=== PATIENT | female | born 1940 | race Caucasian/White ===

== ENCOUNTER 2020-03-01 18:23 | Inpatient (IN) | payer OTHER, SELFPAY ==
[~2020-03-01] VITALS: Ht 160 cm; Wt 63.5 kg
--- NOTE | 2020-03-01 19:09 | NUR ---
RECEIVED PT IN BED 7 VIA [facility] WITH C/O ALOC. PT IS FROM [facility]. PT WAS FOUND OUTSIDE EARLIER TODAY, ALTERED, 911 WAS CALLED, PT TAKEN TO [facility] WHERE SHE WAS FOUND TO BE COVID (+). PT SIGNED OUT AMA. RETURNED HOME WAS ONCE AGAIN FOUND ALTERED IN FRONT OF HOME, 911 WAS CALLED AGAIN. PT IS NOW AWAKE AND CONFUSED, MINIMALLY FOLLOWS COMMANDS. IS DISHEVELED. DENIES MEDICAL HISTORY. BG RETAIL ASSISTANT STORE MANAGER WAS 51. D10 WAS GIVEN BY MEDICS.. 22G SL INTACT TO LEFT HAND.
[2020-03-01] MEDS: DEXTROSE 10% 250 ML IV SCH (19:10)
[2020-03-01 19:32] VITALS: BP 127/58
[2020-03-01 19:47] LABS: BASOPHILS % (AUTO) 0.3 % (0.0-2.0); HEMATOCRIT 37.1 % (36-48); HEMOGLOBIN 11.5 g/dL (12.0-16.0); LYMPHOCYTES # (AUTO) 0.8 K/uL (2.5-16.5); LYMPHOCYTES % (AUTO) 8.2 % (20.5-51.1); MEAN CORPUSCULAR HEMOGLOBIN 27 pg (27-31); MEAN CORPUSCULAR HGB CONC 31 g/dL (33-37); MEAN CORPUSCULAR VOLUME 85.3 fL (80-94); MONOCYTES # (AUTO) 0.4 K/uL (0.8-1.0); MONOCYTES % (AUTO) 4.2 % (1.7-9.3); NEUTROPHILS # (AUTO) 8.5 K/uL (1.8-7.7); NEUTROPHILS % (AUTO) 87.3 % (42.2-75.2); PLATELET COUNT (AUTO) 273 K/uL (140-450); RED BLOOD CELL COUNT(AUTO) 4.35 MIL/uL (4.20-5.40); WHITE BLOOD COUNT (AUTO) 9.8 K/uL (4.8-10.8)
--- NOTE | 2020-03-01 19:48 | NUR ---
ABG DRAWN, PCXR DONE
[2020-03-01 19:58] LABS: C-REACTIVE PROTEIN QUANT 1.5 mg/dL (0.0-0.9)
[2020-03-01 20:01] LABS: PROTHROMBIN TIME 13.7 secs (10.8-13.4)
[2020-03-01 20:03] LABS: LACTATE DEHYDROGENASE 172 U/L (81-234)
[2020-03-01 20:05] LABS: ALBUMIN 2.8 g/dL (3.4-5.0); ANION GAP 16.8 (8-16); ASPARTATE AMINOTRANSFERASE 32 U/L (15-37); CARBON DIOXIDE 24.5 mmol/L (21-32); CHLORIDE 126 mmol/L (98-107); CREATININE 1.8 mg/dL (0.6-1.3); GLUCOSE 281 mg/dL (74-106); POTASSIUM 3.3 mmol/L (3.5-5.1); TOTAL BILIRUBIN 0.5 mg/dL (0.0-1.0); UREA NITROGEN, BLOOD 47 mg/dL (7-18)
[2020-03-01 20:14] LABS: SODIUM SERUM 164 mmol/L (136-145)
--- NOTE | 2020-03-01 20:20 | NUR ---
NOTIFIED DR. SEO OF ABNORMAL LAB RESULTS: SODIUM 164, CHLORIDE 126, CREATININE 1.8, BUN 47, AND LACTIC ACID 2.8. GAVE NEW ORDERS FOR 1L OF 0.9% NS.
[2020-03-01] MEDS ORDERED: NACL 0.9% 1,000 ML IV ONE (20:30)
[2020-03-01 20:55] LABS: APPEARANCE,URINE CLEAR (CLEAR); BILIRUBIN,URINE 1+ (NEGATIVE); BLOOD, URINE TRACE-I (NEGATIVE); COLOR,URINE YELLOW (YELLOW); LEUKOCYTE ESTERASE ,URINE NEGATIVE (NEGATIVE); NITRITE, URINE NEGATIVE (NEGATIVE); PH,URINE 5.5 (5.0-9.0); UGLUCOSE 2+ (NEGATIVE)
[2020-03-01 21:22] LABS: RSV NEGATIVE (NEGATIVE)
[2020-03-01] MEDS ORDERED: NACL 0.45% 1,000 ML IV SCH (21:30)
[2020-03-01 23:05] LABS: ANION GAP 13.9 (8-16); CARBON DIOXIDE 25.4 mmol/L (21-32); CHLORIDE 130 mmol/L (98-107); CREATININE 1.4 mg/dL (0.6-1.3); GLUCOSE 136 mg/dL (74-106); POTASSIUM 3.3 mmol/L (3.5-5.1); UREA NITROGEN, BLOOD 45 mg/dL (7-18)
[2020-03-01 23:45] LABS: SODIUM SERUM 166 mmol/L (136-145)
[2020-03-01] MEDS ORDERED: ACETAMINOPHEN 325 MG TAB PO PRN (23:45)
[2020-03-01] MEDS ORDERED: INSULIN LISPRO SLIDING SCALE 100 UNITS/ML VIAL SUBQ PRN (23:45)
[2020-03-01] MEDS ORDERED: MAG SULF 2000 MG/WATER PREMIX 50 ML IV PRN (23:45)
[2020-03-01] MEDS ORDERED: ZOLPIDEM 5 MG TAB PO PRN (23:45)
[2020-03-01] MEDS ORDERED: DOCUSATE SODIUM 100 MG GELCAP PO PRN (23:45)
[2020-03-01] MEDS ORDERED: HYDROcodone/APAP 5/325 MG 1 TAB TAB PO PRN (23:45)
[2020-03-01] MEDS ORDERED: LORazepam 2 MG/ML VIAL IM/IVP PRN (23:45)
[2020-03-01] MEDS ORDERED: ALBUTEROL HFA MDI 90 MCG/ACTUATION 8 GM INH PRN (23:45)
[2020-03-01] MEDS ORDERED: MORPHINE SULFATE 2 MG/ML SYR IVP PRN (23:45)
[2020-03-01] MEDS ORDERED: POTASSIUM CHLORIDE 10 MEQ TABER PO PRN (23:45)
--- NOTE | 2020-03-01 23:45 | NUR ---
LAB REPORTED CRITICAL VALUE OF NA 166. CALLED DR. PEGUERO STATED TO START 1/2 NS AT 60 MLS/HR.
--- NOTE | 2020-03-01 23:57 | NUR ---
PHARM CALLED AND STATED THEY CANT GET PAST PCN ALLERGY WITHOUT KNOWING WHAT TYPE OF REACTION THE PT WILL HAVE. CALLED DR. PEGUERO AND EXPLAINED. DR. PEGUERO STATED IT IS OK TO PUT THE ORDERS THROUGH.
--- NOTE | 2020-03-02 00:02 | NUR ---
PT REFUSING TX AND FLUIDS. STATED "I WANT TO GO HOME". DR. PEGUERO IS AWARE.
[2020-03-02 00:14] LABS: BARBITURATE, URINE NEGATIVE ng/ml (NEG <=200); BENZODIAZEPINE, URINE NEGATIVE ng/mL (NEG <=200); CANNABINOID, URINE NEGATIVE ng/mL (NEG <=50); COCAINE, URINE NEGATIVE ng/mL (NEG <=300); OPIATE, URINE NEGATIVE ng/mL (NEG <=2000); PHENCYCLIDINE SCREEN,URINE NEGATIVE ng/mL (NEG <=25)
--- NOTE | 2020-03-02 00:24 | NUR ---
DR. PEGUERO STATED FOR PT TO HAVE PSYCH CONSULT. ORDER CARRIED OUT.
[2020-03-02] MEDS ORDERED: AZITHROMYCIN 1,000 MG in DEXTROSE 5% 500 ML IV SCH (00:30)
[2020-03-02] MEDS: ENOXAPARIN 60 MG/0.6 ML SYR SUBQ SCH ×2 (00:47→13:45)
--- NOTE | 2020-03-02 01:44 | NUR ---
PT CONT IN STABLE CONDITION. ASKED PT IF I CAN START FLUIDS AND CHECK BLOOD SUGAR. PT STATED CALMLY " NO, NO WE ARE GOING HOME NO NOTHING". PTS VITALS ARE STABLE.
--- NOTE | 2020-03-02 02:24 | NUR ---
PT VOMITTED, PROVIDED WITH WASH CLOTHES AND EMESIS BAG. OFFERED NAUSEA MEDICATION, PT REFUSED. PT IN STABLE CONDITION.BED LOCKED IN LOWEST POSITION, SIDE RAILS X2.
--- NOTE | 2020-03-02 04:11 | NUR ---
PT IS IN STABLE CONDITION. EACH TIME I CHECK ON PT THE PT STATES "TIME TO GO HOME". PT CONTINUES TO REFUSE TX AND NURSING INTERVENTIONS BESIDES THOSE FOR COMFORT. PT VITAL SIGNS ARE STABLE. BED LOCKED IN LOWEST POSITION, SIDE RAILS X2. WRAP YARN SORTER AND PULSE OX IN PLACE.
--- NOTE | 2020-03-02 04:30 | NUR ---
PT BECAME AGITATED AND COMBATIVE. PT HAS PRN FOR ATIVAN. ORDERS CARRIED OUT.
--- NOTE | 2020-03-02 04:54 | NUR ---
PT IS SLEEPING. BLOOD SUGAR TAKEN 79. PT IN STABLE CONDITION, VITAL SIGNS STABLE. BED LOCKED IN LOWEST POSITION, SIDE RAILS X2.
--- NOTE | 2020-03-02 04:59 | NUR ---
DR. PEGUERO CONTACTED AND UPDATED ON PT'S CONDITION. WAITING FOR RESPONSE.
--- NOTE | 2020-03-02 05:04 | NUR ---
DR. PEGUERO SAID IT IS OK TO CONTINUE WITH PREVIOUS ORDER OF 0.45% NS. ORDERS CARRIED OUT.
[2020-03-02] MEDS ORDERED: NACL 0.45% 1,000 ML IV SCH ×2 (05:10→07:00)
[2020-03-02] MEDS: DEXTROSE 10% 250 ML IV SCH ×3 (05:10→11:19)
--- NOTE | 2020-03-02 06:51 | NUR ---
PT IS SLEEPING IN STABLE CONDITION. EQUAL RISE AND FALL OF CHEST WALL. SIDE RAILS X2, BED LOCKED IN LOWEST POSITION. PT ON FLUIDS ORDERED.
[2020-03-02] MEDS: BLOOD GLUCOSE MONITORING 1 DEV DEV FS SCH ×4 (07:09→21:00)
--- NOTE | 2020-03-02 07:20 | NUR ---
REPORT RECEIVED FROM LILLY PARKER, TRANSFER OF CARE AT THIS TIME
--- NOTE | 2020-03-02 07:28 | NUR ---
REPORT GIVEN TO KEITH REYNOLDS. TRANSFER OF CARE AT THIS TIME.
--- NOTE | 2020-03-02 08:20 | NUR ---
Bindu cifuentes in [facility] - 03/02/[address] SERRANO AT BEDSIDE
[2020-03-02 08:40] LABS: BASOPHILS % (AUTO) 0.1 % (0.0-2.0); EOSINOPHILS % (AUTO) 0.3 % (0.0-4.0); HEMATOCRIT 33.1 % (36-48); HEMOGLOBIN 10.6 g/dL (12.0-16.0); LYMPHOCYTES # (AUTO) 1.2 K/uL (2.5-16.5); LYMPHOCYTES % (AUTO) 13.7 % (20.5-51.1); MEAN CORPUSCULAR HEMOGLOBIN 27 pg (27-31); MEAN CORPUSCULAR HGB CONC 32 g/dL (33-37); MEAN CORPUSCULAR VOLUME 84.3 fL (80-94); MONOCYTES # (AUTO) 0.4 K/uL (0.8-1.0); MONOCYTES % (AUTO) 5.1 % (1.7-9.3); NEUTROPHILS # (AUTO) 7.1 K/uL (1.8-7.7); NEUTROPHILS % (AUTO) 80.8 % (42.2-75.2); PLATELET COUNT (AUTO) 236 K/uL (140-450); RED BLOOD CELL COUNT(AUTO) 3.92 MIL/uL (4.20-5.40); RED CELL DISTRIBUTION WIDTH 16.9 % (11.6-13.7); WHITE BLOOD COUNT (AUTO) 8.8 K/uL (4.8-10.8)
--- NOTE | 2020-03-02 08:40 | NUR ---
PT CONSISTENTLY TRIES TO GET OUT OF BED AND TAKES OFF CLOTHES, PT PLACED BACK ON MONITOR, BED IN LOWEST POSITION, BED RAIL UPX2. PT IN BED CLOSEST TO NURSING STATION
[2020-03-02] MEDS ORDERED: LOVENOX 1MG/KG Q12H SUBQ SCH (09:00)
[2020-03-02 09:12] LABS: ALBUMIN 2.5 g/dL (3.4-5.0); ANION GAP 15.8 (8-16); ASPARTATE AMINOTRANSFERASE 25 U/L (15-37); CARBON DIOXIDE 24.5 mmol/L (21-32); CHLORIDE 130 mmol/L (98-107); CREATININE 1.4 mg/dL (0.6-1.3); GLUCOSE 87 mg/dL (74-106); LACTATE DEHYDROGENASE 203 U/L (81-234); MAGNESIUM 2.3 mg/dL (1.8-2.4); PHOSPHORUS 2.5 mg/dL (2.5-4.9); POTASSIUM 3.3 mmol/L (3.5-5.1); TOTAL BILIRUBIN 0.4 mg/dL (0.0-1.0); UREA NITROGEN, BLOOD 44 mg/dL (7-18)
[2020-03-02 09:13] LABS: CHOL/HDL RATIO 2.8 (1-4.5)
[2020-03-02 10:12] LABS: SODIUM SERUM 167 mmol/L (136-145)
[2020-03-02] MEDS: VITAMIN D 400 IU TAB PO SCH (10:18)
[2020-03-02] MEDS: ASCORBIC ACID 500 MG TAB PO SCH (10:18)
[2020-03-02] MEDS: ZINC SULF 220 MG CAP PO SCH ×2 (10:19→21:00)
--- NOTE | 2020-03-02 10:19 | NUR ---
Sodium 167--critical value received from lab. Dr Emerson notified
--- NOTE | 2020-03-02 10:20 | NUR ---
PT GIVEN MEDICATION IN APPLESAUCE, ONLY HAD 2 SPOONFULLS DID NOT EAT ALL MEDICATION. DR ANAND MADE AWARE
[2020-03-02] MEDS: AZITHROMYCIN 250 MG in DEXTROSE 5% 250 ML IV SCH (10:56)
--- NOTE | 2020-03-02 11:10 | NUR ---
PT REMAINS AOX2 TO NAME, , IV REPLACED AFTER IT FELL OUT - 20G INTO RIGHT AC
--- NOTE | 2020-03-02 12:30 | NUR ---
PT RESTING WITH EYES CLOSED, BREATHING EVEN AND UNLABORED. PT ON MONITOR VS STABLE.
--- NOTE | 2020-03-02 13:35 | NUR ---
Spoke to patients sonja Muhammad-- call for updates [phone]
--- NOTE | 2020-03-02 14:24 | NUR ---
SOCIAL WORK NOTE: SW WAS UNABLE TO MEET PATIENT AT BEDSIDE DUE TO MEDICAL CONDITION. NO EMERGENCY CONTACT WAS PROVIDED. SW CONTACTED RN FOR EMERGENCY CONTACT BUT NONE WERE AVAILABLE. SW WILL FOLLOW UP TO COMPLETE ASSESSMENT.
--- NOTE | 2020-03-02 14:30 | NUR ---
PT RESTING WITH EYES CLOSED, BREATHING EVEN AND UNLABORED. PT ON MONITOR VS STABLE.
--- NOTE | 2020-03-02 15:30 | NUR ---
CONTACTED DR PEGUERO TO SEE IF SHE STILL WANTS TO CONTINUE D10% AND SHE STATES TO TALK TO NEPHRO . CALLED DR RINCON REGARDING D10 IF IT WILL STILL CONTINUE, WAITINIG FOR CALL BACK.
--- NOTE | 2020-03-02 15:30 | NUR ---
DR PEGUERO MADE AWARE OF PT BP, GAVE VERBAL ORDER OF LOPRESSOR 10MG IV AND FOR HYDRALAZINE 10MG PRN
[2020-03-02] MEDS ORDERED: METOPROLOL 5 MG/5 ML VIAL IV ONE (15:35)
[2020-03-02] MEDS ORDERED: hydrALAZINE 10 MG TAB PO PRN (15:35)
--- NOTE | 2020-03-02 15:45 | NUR ---
PHARMACY CALLED, STATES THAT ORDER FOR LOPRESSOR OF 10MG IS TOO MUCH AND WANT DR PEGUERO TO REORDER MED. DR PEGUERO MADE AWARE
--- NOTE | 2020-03-02 15:58 | NUR ---
TALKED TO DR GLASGOW REGARDING PT. STATES TO DC D10% AND 0.45%NS. STATES TO START D5 1/2NS.
--- NOTE | 2020-03-02 16:00 | NUR ---
ATTEMPTED TO REACH DR GLASGOW REGARDING RATE AND FREQUENCY OF D5 1/2NS, DOG BREEDER OF FACILITY STATE HE WAS PAGED.
[2020-03-02] MEDS ORDERED: METOPROLOL 5 MG/5 ML VIAL IV SCH (16:03)
--- NOTE | 2020-03-02 16:37 | NUR ---
PT RESTING WITH EYES CLOSED, BREATHING EVEN AND UNLABORED. PT ON MONITOR REMAINS ON MONITOR, BP 194/101, HR 97
--- NOTE | 2020-03-02 18:28 | NUR ---
PT ALERT AND AWAKE, AOX2, BREATHING EVEN AND UNLABORED. PT REMAINS CONFUSED AND ON MONITOR. PT CHANGED AND CLEANED, NEW BED DRESSING
--- NOTE | 2020-03-02 18:32 | NUR ---
ATTEMPTED TO REACH DR GLASGOW AGAIN, HELIOTHERAPIST OF FACILITY STATES HE WILL CALL US
--- NOTE | 2020-03-02 19:19 | NUR ---
Bindu cifuentes in [facility] - 03/02/20 at 1919 by [facility] REPORT GIVEN TO LILLY PARKER, TRANSFER OF CARE AT THIS TIME
--- NOTE | 2020-03-02 19:20 | NUR ---
REPORT GIVEN TO LILLY PARKER, TRANSFER OF CARE AT THIS TIME
--- NOTE | 2020-03-02 19:20 | NUR ---
RECEIVED REPORT FROM KEITH REYNOLDS. TRANSFER OF CARE AT THIS TIME.
--- NOTE | 2020-03-02 19:50 | NUR ---
PT IS IN STABLE CONDITION, SHOWS PERIODS OF CONFUSION STATING SHE NEEDS TO GO HOME BECAUSE NOTHING IS WRONG AND HER FRIEND IS WAITING AT HOME FOR HER. EQUAL RISE AND AND FALL OF CHEST WALL. PT DENIES PAIN. PT IS ON HUNTING GUIDE AND PULSE OX. SIDE RAILS X2, BED LOCKED IN LOWEST POSITION.
--- NOTE | 2020-03-02 22:00 | NUR ---
PT IS SLEEPING, EQUAL RISE AND FALL OF CHEST WALL. PT IN STABLE CONDITION. BED LOCKED IN LOWEST POSITION, SIDE RAILS X2. PT ON TEACHER HOME THERAPY AND PULSE OX.
--- NOTE | 2020-03-02 23:19 | NUR ---
CALLED AND GAVE REPORT TO KEITH GROSSMAN. 3022. RM 100B, TELE.
--- NOTE | 2020-03-02 23:50 | NUR ---
Patient will be admitted to care of DR. PEGUERO. Admited to TELE. Will go to [id number]. Belongings list completed. Report to KEITH GROSSMAN.
--- NOTE | 2020-03-02 23:50 | NUR ---
RECEIVED PT FROM ER / YONNY ,AOX1 SLEEPY BUT AROUSABLE - ANSWERS QUESTION INAPPROPRIATELY O2 SAT - WNL . - RA . IV SITE INTACT AND PATENT . TRANSFER TO BED SAFELY . ADMISSION ASSESSMENT - DONE . SAFETY MEASURES IN PLACE FALL PROTOCOL IN PLACE . PLAN OF CARE DISCUSSED BUT NEEDS REINFORCEMENT DUE TO MENTAL STATUS .WILL CONT. TO MONITOR
--- NOTE | 2020-03-03 00:30 | NUR ---
ER NURSE CHECKED BLOOD SUGAR AT 2130, IT WAS 123. NO INSULIN GIVEN. PER ENDORSED, THE ZINC PO WASN'T GIVEN BECAUSE PT WAS REFUSING.
[2020-03-03] MEDS: ENOXAPARIN 60 MG/0.6 ML SYR SUBQ SCH ×2 (01:00→01:17)
--- NOTE | 2020-03-03 01:26 | NUR ---
PT REFUSED ROCEPHIN IV ANTIBIOTIC, EXPLAINED THE RISKS AND BENEFITS X3, PT STILL REFUSES. AWARE.
--- NOTE | 2020-03-03 01:28 | NUR ---
PT REFUSED LOVENOX SQ. EXPLAINED THE RISKS AND BENEFITS, PT STILL REFUSED 3X. DISCARDED MEDICATION, WITNESSED BY KEITH RICHARD.
--- NOTE | 2020-03-03 03:00 | NUR ---
FOUND PT SITTING ON THE FLOOR - ASSESSED PT - DENIES ANY PAIN - NO BRUISES NOTED . AMBULATES BACK TO BED W/ ASSIST - WILL INFORM DR. PEGUERO .
--- NOTE | 2020-03-03 03:05 | NUR ---
INFORM DR Salty PEGUERO - PER DR Salty PEGUERO NO FURTHER ORDERS - JUST MONITOR THE PT .
[2020-03-03 04:00] VITALS: BP 148/80
--- NOTE | 2020-03-03 04:00 | NUR ---
PT AWAKE . CAN FOLLOW SIMPLE COMMANDS NID - O2 SAT WNL . DENIES PAIN AT THIS TIME . WILL CONT. TO MONITOR
--- NOTE | 2020-03-03 05:45 | NUR ---
CHECKED PT. SAW PT NAKED AND STANDING PUTTING HER BELONGINGS IN A PLASTIC BAG. SHE SAID THAT SHE WANTED TO GO. I PUT BACK THE HOSPITAL GOWN AND TOLD PATIENT TO STAY INSIDE THE ROOM WHILE I CONTACT THE DOCTOR. PT IS WALKING AND CONTINUE TO WALK OUTSIDE OF HER ROOM. ALSO THE PROJECTOR OPERATOR SAID THAT PT REFUSED BLOOD DRAW. INFORMED DR. PEGUERO. FELLOW RN AND HOUSE SUP HELPED IN PUTTING BACK THE PT INSIDE HER ROOM. SAFETY MEASURES IN PLACE, FALL PROTOCOL IN PLACE, CALL LIGHT WITHIN REACH.
[2020-03-03] MEDS: BLOOD GLUCOSE MONITORING 1 DEV DEV FS SCH ×5 (06:54→21:59)
--- NOTE | 2020-03-03 06:55 | NUR ---
BLOOD SUGAR 102. NO COVERAGE NEEDED. PT IS IN BED, PT STABLE, NO DISTRESS, NO SOB, CALL LIGHT WITHIN REACH.
--- NOTE | 2020-03-03 07:20 | NUR ---
ENDORSED - PT - STABLE
[2020-03-03 07:45] VITALS: BP 127/70
[2020-03-03 08:00] VITALS: BP 127/70
--- NOTE | 2020-03-03 08:15 | NUR ---
Patient is AOx1, disoriented to time date place and situation. Sinus rhythm on monogram machine operator. On room air with respirations even and unlabored SpO2 100%. Denies pain. Frequent reorientation provided, patient says she wishes to return to [facility]. Ambulates to bathroom with assistance, unsteady gait noted. Patient is refusing lab draw, IV fluids, and PO medications. Spoke to renee León and Jb on phone and updated on plan of care. Fall and safety precautions in place. Bed alarm applied. Will continue to monitor.
[2020-03-03] MEDS: ASCORBIC ACID 500 MG TAB PO SCH (09:00)
[2020-03-03] MEDS: VITAMIN D 400 IU TAB PO SCH ×2 (09:00→11:44)
[2020-03-03] MEDS: ZINC SULF 220 MG CAP PO SCH ×4 (09:00→21:59)
[2020-03-03] MEDS: ATORVASTATIN 20 MG TAB PO SCH ×2 (09:00→11:43)
[2020-03-03 09:06] LABS: T4 (THYROXINE) 5.1 ug/dL (4.5-12.0)
--- NOTE | 2020-03-03 10:40 | NUR ---
Spoke to Dr. Copeland at bedside. Orders for STAT BMP, and start of IV fluids. Patient is agreeable and compliant at this time.
[2020-03-03] MEDS: NACL 0.45% 1,000 ML IV SCH ×2 (10:50→20:50)
--- NOTE | 2020-03-03 10:56 | NUR ---
PATIENT HAS BEEN SCREENED AND CATEGORIZED HIGH NUTRITION RISK. PATIENT WILL BE SEEN WITHIN 1-2 DAYS OF ADMISSION. 03/03/[address]
[2020-03-03 12:00] VITALS: BP 144/74
--- NOTE | 2020-03-03 12:30 | NUR ---
Blood sugar 74. Patient denies dizziness/lightheadedness. Refused medications, meals, and juice. Fall and safety precautions in place. Will continue to monitor.
[2020-03-03 13:08] LABS: BASOPHILS % (AUTO) 0.2 % (0.0-2.0); EOSINOPHILS % (AUTO) 0.6 % (0.0-4.0); HEMATOCRIT 32.9 % (36-48); HEMOGLOBIN 10.7 g/dL (12.0-16.0); LYMPHOCYTES # (AUTO) 1.1 K/uL (2.5-16.5); LYMPHOCYTES % (AUTO) 15.1 % (20.5-51.1); MEAN CORPUSCULAR HEMOGLOBIN 27 pg (27-31); MEAN CORPUSCULAR HGB CONC 33 g/dL (33-37); MEAN CORPUSCULAR VOLUME 83.6 fL (80-94); MONOCYTES # (AUTO) 0.4 K/uL (0.8-1.0); MONOCYTES % (AUTO) 5.9 % (1.7-9.3); NEUTROPHILS # (AUTO) 5.8 K/uL (1.8-7.7); NEUTROPHILS % (AUTO) 78.2 % (42.2-75.2); PLATELET COUNT (AUTO) 203 K/uL (140-450); RED BLOOD CELL COUNT(AUTO) 3.94 MIL/uL (4.20-5.40); RED CELL DISTRIBUTION WIDTH 16.6 % (11.6-13.7); WHITE BLOOD COUNT (AUTO) 7.5 K/uL (4.8-10.8)
[2020-03-03] MEDS: ENOXAPARIN 30 MG/0.3 ML SYR SUBQ SCH (13:10)
[2020-03-03 13:28] LABS: ALBUMIN 2.5 g/dL (3.4-5.0); ANION GAP 11.3 (8-16); ASPARTATE AMINOTRANSFERASE 27 U/L (15-37); CARBON DIOXIDE 28.1 mmol/L (21-32); CHLORIDE 121 mmol/L (98-107); CREATININE 1.1 mg/dL (0.6-1.3); GLUCOSE 81 mg/dL (74-106); LACTATE DEHYDROGENASE 203 U/L (81-234); MAGNESIUM 1.9 mg/dL (1.8-2.4); PHOSPHORUS 2.2 mg/dL (2.5-4.9); POTASSIUM 3.4 mmol/L (3.5-5.1); TOTAL BILIRUBIN 0.6 mg/dL (0.0-1.0); UREA NITROGEN, BLOOD 30 mg/dL (7-18)
[2020-03-03 13:30] LABS: SODIUM SERUM 157 mmol/L (136-145)
[2020-03-03] MEDS: AZITHROMYCIN 250 MG in DEXTROSE 5% 250 ML IV SCH (14:01)
[2020-03-03 16:00] VITALS: BP 140/64
[2020-03-03] MEDS ORDERED: KCL 20 MEQ/WATER INJ PREMIX 200 ML IV SCH (16:00)
--- NOTE | 2020-03-03 16:19 | NUR ---
03/03/2020 RD INITIAL ASSESSMENT COMPLETED PLEASE REFER TO NUTRITION ASSESSMENT UNDER CARE ACTIVITY FOR ESTIMATED NUTRITIONAL NEEDS. CONTINUE CURRENT DIET ORDERED DECREASED NUTRITION RISK TO MODERATE DUE TO IMPROVED GLUCOSE CONTROL RD TO FOLLOW-UP IN 3-5 DAYS PATIENT IS MODERATE RISK. TRISTAN DAY, RD
--- NOTE | 2020-03-03 18:29 | NUR ---
Patient remains confused, AOx1, Frequent reorientation provided. Patient ambulated to bathroom, IV was removed inadvertently, new IV placed in right forearm. Pt denies pain, still refusing PO meds and meals. Tele monitor removed, patient is a med- surg patient. Fall and safety precautions in place. Will endorse to night RN.
--- NOTE | 2020-03-03 19:15 | NUR ---
RECEIVED REPORT FROM DAY SHIFT NURSE. PT ASLEEP, BUT EASILY AROUSABLE. RESPIRATIONS ARE EVEN AND UNLABORED TO ROOM AIR. PT NOT IN DISTRESS. ABDOMEN SOFT AND NON-TENDER. ACTIVE BOWEL SOUNDS NOTED. SKIN IS WARM, DRY, AND INTACT. PT WITH NOTED SCARS/SCABS ON HANDS. PT WITH IV ACCESS ON RIGHT FA G22 PATENT AND INTACT. IVF INFUSING WELL. PT DENIES ANY PAIN OR DISCOMFORT AT THIS TIME. NO REQUESTS MADE. PT KEPT COMFORTABLE. SAFETY MEASURES IN PLACE. WILL CONTINUE TO MONITOR.
[2020-03-03 20:00] VITALS: BP 137/75
[2020-03-03 21:51] LABS: ANION GAP 8.3 (8-16); CARBON DIOXIDE 18.5 mmol/L (21-32); CHLORIDE 78 mmol/L (98-107); CREATININE 0.7 mg/dL (0.6-1.3); GLUCOSE 57 mg/dL (74-106); UREA NITROGEN, BLOOD 18 mg/dL (7-18)
--- NOTE | 2020-03-03 21:59 | NUR ---
VS STABLE. PT REFUSING TO DRINK MEDICINE DESPITE HEALTH TEACHING. BLOOD SUGAR 75. PT REFUSES OFFER TO DRINK JUICE. IVF INFUSING WELL. PT DENIES ANY PAIN OR DISCOMFORT AT THIS TIME. NO REQUESTS MADE. SAFETY MEASURES IN PLACE. WILL CONTINUE TO MONITOR.
[2020-03-03 22:03] LABS: POTASSIUM 1.8 mmol/L (3.5-5.1); SODIUM SERUM 103 mmol/L (136-145)
[2020-03-03] MEDS ORDERED: NACL 0.9% 1,000 ML IV SCH (22:20)
--- NOTE | 2020-03-03 22:25 | NUR ---
REPORTED CRITICAL LAB VALUE SODIUM 103, POTASSIUM 1.8, CALCIUM [address] ANAND. NEW ORDERS RECEIVED. IVF CHANGED TO NS 50CC/HR AND REPEAT BMP AT 0000 ORDERED. PT ALERT AND ORIENTED, RESPONSIVE. WILL CONTINUE TO MONITOR.
--- NOTE | 2020-03-04 00:21 | NUR ---
ROUNDS MADE. BLOOD SUGAR 77. PT DENIES ANY DIZZINESS OR LIGHTHEADEDNESS. OFFERED SNACKS, PT REFUSED. PT KEPT COMFORTABLE. SAFETY MEASURES IN PLACE. WILL CONTINUE TO MONITOR.
[2020-03-04 01:19] LABS: ANION GAP 10.9 (8-16); CARBON DIOXIDE 27.7 mmol/L (21-32); CHLORIDE 119 mmol/L (98-107); CREATININE 1.1 mg/dL (0.6-1.3); GLUCOSE 86 mg/dL (74-106); SODIUM SERUM 155 mmol/L (136-145); UREA NITROGEN, BLOOD 28 mg/dL (7-18)
[2020-03-04 01:31] LABS: POTASSIUM 2.6 mmol/L (3.5-5.1)
--- NOTE | 2020-03-04 02:05 | NUR ---
ASLEEP. VISIBLE CHEST RISE AND FALL NOTED. PT NOT IN DISTRESS. NO S/SX OF PAIN OR DISCOMFORT. PT KEPT COMFORTABLE. SAFETY MEASURES IN PLACE. CALL LIGHT WITHIN REACH. WILL CONTINUE TO MONITOR.
[2020-03-04 04:00] VITALS: BP 132/67
--- NOTE | 2020-03-04 04:18 | NUR ---
PT ASSISTED TO RESTROOM AND BACK TO BED SAFELY. PT OFFERED SOME SNACKS AND DRINK. PT REQUESTED SOME APPLE JUICE. APPLE JUICE GIVEN REQUESTED. PT DENIES ANY PAIN OR DISCOMFORT AT THIS TIME. PT KEPT COMFORTABLE. SAFETY MEASURES IN PLACE. CALL LIGHT WITHIN REACH. WILL CONTINUE TO MONITOR.
[2020-03-04] MEDS: BLOOD GLUCOSE MONITORING 1 DEV DEV FS SCH ×4 (06:33→20:20)
--- NOTE | 2020-03-04 06:33 | NUR ---
BLOOD SUGAR 88. NO INSULIN COVERAGE NEEDED. WILL CONTINUE TO MONITOR.
[2020-03-04 07:21] LABS: ALBUMIN 2.2 g/dL (3.4-5.0); ANION GAP 14.7 (8-16); ASPARTATE AMINOTRANSFERASE 24 U/L (15-37); CARBON DIOXIDE 24.9 mmol/L (21-32); CHLORIDE 119 mmol/L (98-107); CREATININE 1.1 mg/dL (0.6-1.3); GLUCOSE 78 mg/dL (74-106); LACTATE DEHYDROGENASE 205 U/L (81-234); MAGNESIUM 1.8 mg/dL (1.8-2.4); PHOSPHORUS 2.8 mg/dL (2.5-4.9); TOTAL BILIRUBIN 0.4 mg/dL (0.0-1.0); UREA NITROGEN, BLOOD 27 mg/dL (7-18)
--- NOTE | 2020-03-04 07:27 | NUR ---
ENDORSED TO DAY SHIFT NURSE FOR CONTINUITY OF CARE
[2020-03-04 07:29] LABS: BASOPHILS % (AUTO) 0.2 % (0.0-2.0); EOSINOPHILS # (AUTO) 0.1 K/uL (0-0.4); EOSINOPHILS % (AUTO) 0.8 % (0.0-4.0); HEMATOCRIT 28.5 % (36-48); HEMOGLOBIN 9.3 g/dL (12.0-16.0); LYMPHOCYTES # (AUTO) 1.4 K/uL (2.5-16.5); MEAN CORPUSCULAR HEMOGLOBIN 27 pg (27-31); MEAN CORPUSCULAR HGB CONC 33 g/dL (33-37); MEAN CORPUSCULAR VOLUME 83.8 fL (80-94); MONOCYTES # (AUTO) 0.4 K/uL (0.8-1.0); PLATELET COUNT (AUTO) 157 K/uL (140-450); RED BLOOD CELL COUNT(AUTO) 3.39 MIL/uL (4.20-5.40); RED CELL DISTRIBUTION WIDTH 16.5 % (11.6-13.7); WHITE BLOOD COUNT (AUTO) 6.8 K/uL (4.8-10.8)
[2020-03-04 08:00] VITALS: BP_SYST 132; BP_SYST 148; BP_DIAS 67; BP_DIAS 79
[2020-03-04] MEDS: ASCORBIC ACID 500 MG TAB PO SCH (08:07)
[2020-03-04] MEDS: ATORVASTATIN 20 MG TAB PO SCH (08:07)
[2020-03-04] MEDS: VITAMIN D 400 IU TAB PO SCH (08:07)
[2020-03-04] MEDS: ZINC SULF 220 MG CAP PO SCH ×2 (08:07→20:20)
[2020-03-04 08:09] LABS: SODIUM SERUM 156 mmol/L (136-145)
[2020-03-04 08:10] LABS: POTASSIUM 2.6 mmol/L (3.5-5.1)
--- NOTE | 2020-03-04 08:10 | NUR ---
PATIENT IS AOX1, RESPIRATIONS EVEN AND UNLABORED ON ROOM AIR 98%. DENIES SHORTNESS OF BREATH/COUGH/PAIN. PATIENT IS CONFUSED TO DATE TIME PLACE AND SITUATION, FREQUENT REORIENTATION PROVIDED. REFUSING PO MEDS AND MEALS. NA 156 AND K 2.[address] PEGUERO[address] AMBUALTED WITH ASSIST TO BATHROOM, PT WITH UNSTEADY GAIT. UPDATED PATIENT ON PLAN OF CARE. FALL AND SAFETY PRECAUTIONS IN PLACE. BED ALARM APPLIED. WILL CONTINUE TO MONITOR.
[2020-03-04] MEDS: AZITHROMYCIN 250 MG in DEXTROSE 5% 250 ML IV SCH (09:44)
[2020-03-04] MEDS: ENOXAPARIN 30 MG/0.3 ML SYR SUBQ SCH (09:45)
[2020-03-04] MEDS ORDERED: POTASSIUM CHLORIDE 10 MEQ TABER PO PRN (10:50)
[2020-03-04] MEDS ORDERED: MAG SULF 2000 MG/WATER PREMIX 50 ML IV PRN (10:50)
--- NOTE | 2020-03-04 11:00 | NUR ---
NOTIFIED DR PEGUERO REGARDING NA AND K. ORDERS RECEIVED.
[2020-03-04] MEDS: NACL 0.45% 1,000 ML IV SCH ×2 (12:07→20:20)
[2020-03-04] MEDS: ONDANSETRON 4 MG/2 ML VIAL IM/IVP PRN (12:10)
[2020-03-04] MEDS: KCL 20 MEQ/WATER INJ PREMIX 200 ML IV PRN ×2 (13:19→17:30)
[2020-03-04 16:00] VITALS: BP 136/72
--- NOTE | 2020-03-04 16:00 | NUR ---
NOTIFIED DR PEGUERO REGARDING MRSA NARES POSITIVE. RECEIVED ORDERS. OK TO GIVE ANOTHER 40 MEQ KRIDER PRIOR TO 6PM LABS.
--- NOTE | 2020-03-04 16:51 | NUR ---
BLOOD SUGAR 66. ASYMPTOMATIC, DENIES DIZZINESS/LIGHTHEADEDNESS. REFUSING PO INTAKE AND MEDS.
--- NOTE | 2020-03-04 17:58 | NUR ---
PATIENT IV STILL INFUSING REPLACEMENT POTASSIUM. ESTIMATED TO BE FINISHED AROUND 9PM. NOTIFIED LAB. WILL ENDORSE TO NIGHT RN.
--- NOTE | 2020-03-04 19:30 | NUR ---
RECEIVED BEDSIDE REPORT FROM DAY RN. WHEN ASK IF SHE KNOWS WHERE SHE IS PT YELLED, "STOP DO NOT ASK ME THAT AGAIN." PT HX DEMENTIA. AAO TO SELF. RESPIRATIONS EVEN AND UNLABORED ON ROOM AIR 97%. DENIES SHORTNESS OF BREATH/COUGH/PAIN. PT ON DROPLET/CONTACT ISOLATION FOR COVID +, MRSA/NARES. REFUSING PO MEDS AND MEALS. NA 156 AND K 2.6 ORDER K RIDER 80 MEQ ONE MORE BAG NEEDED TO BE INFUSED WILL CALL LAB FOR BMP AFTER ITS COMPLETE. EDUCATED PT TO CALL WHEN NEEDS TO USE BATHROOM PT VERBALIZED UNDERSTANDING, CALL LIGHT IS WITHIN REACH. UPDATED PATIENT ON PLAN OF CARE. FALL AND SAFETY PRECAUTIONS IN PLACE. BED ALARM ON. WILL CONTINUE TO MONITOR.
[2020-03-04 20:00] VITALS: BP 116/54
--- NOTE | 2020-03-04 20:20 | NUR ---
ASSISTED PT TO BATHROOM PT WITH UNSTEADY GAIT. BACK IN BED. SIS MEDICATION REFUSED PT UPSET WHEN EDUCATING REASON FOR MEDICATION. PT HAS BEEN REFUSING PO MEDS AND FOOD PER DAY RN. IS AWARE. PT BG 66 ENCOURAGE TO DRINK JUICE PT REFUSED ORDER FOR DEXTROSE5 IF BG<60 WILL CONTINUE TO MONITOR. BED ALARM ON.
[2020-03-04 21:23] VITALS: BP 132/67
--- NOTE | 2020-03-04 22:15 | NUR ---
PT IS LAYING IN BED WITH EYES CLOSED. CHEST RISE AND FALL NOTED. PT REMAIN ON RA. NO S/S OF DISTRESS. BED ALARM ON. WILL CONTINUE TO MONITOR.
[2020-03-04 22:25] LABS: ANION GAP 10.7 (8-16); CARBON DIOXIDE 24.3 mmol/L (21-32); CHLORIDE 117 mmol/L (98-107); GLUCOSE 78 mg/dL (74-106); SODIUM SERUM 148 mmol/L (136-145); UREA NITROGEN, BLOOD 25 mg/dL (7-18)
--- NOTE | 2020-03-05 | NUR ---
MADE ROUNDS. PT IS SLEEPING COMFORTABLY IN BED WITH EYES CLOSED. CHEST RISE AND FALL NOTED. ALL SAFETY MEASURES ARE IN PLACE. WILL CONTINUE TO MONITOR.
--- NOTE | 2020-03-05 02:15 | NUR ---
PT IS SLEEPING COMFORTABLY IN BED WITH EYES CLOSED. CHEST RISE AND FALL NOTED. ALL SAFETY MEASURES ARE IN PLACE. WILL CONTINUE TO MONITOR.
[2020-03-05 04:00] VITALS: BP 152/57
[2020-03-05] MEDS: DEXTROSE 50% 50 ML SYR IVP PRN ×2 (05:39→12:33)
--- NOTE | 2020-03-05 05:39 | NUR ---
BLOOD SUGAR 58. PT REFUSING TO EAT OR DRINK ANYTHING. PT DENIES ANY S/S OF HYPOGLYCEMIA. ADMINISTERED D5 50ML IVP PER ORDERS. WILL RECHECK BS IN APPROX AN HOUR. PT UPSET WANTS TO GO HOME. EXPLAIN TO PT POC. PT STATES, "I NEED A TAXI I GOT A HOME, PLEASE I HAVE MONEY." REORIENTED PT. SAFETY MEASURES ARE IN PLACE. BED ALARM ON. WILL CONTINUE TO MONITOR. Addendum: 03/05/20 at 0611 by Latisha Downs RN PRN D50 IVP GIVEN
[2020-03-05] MEDS: NACL 0.45% 1,000 ML IV SCH ×2 (05:47→17:20)
[2020-03-05] MEDS: BLOOD GLUCOSE MONITORING 1 DEV DEV FS SCH ×4 (05:48→20:58)
--- NOTE | 2020-03-05 06:47 | NUR ---
RECHECK BLOOD SUGAR 160. OFFERED SNACK AGAIN PT STATES, "NO!" ALL SAFETY MEASURES ARE IN PLACE. CALL LIGHT IS WITHIN REACH. WILL CONTINUE TO MONITOR.
--- NOTE | 2020-03-05 07:30 | NUR ---
GAVE BEDSIDE REPORT TO DAY RN. PT ENDORSED IN STABLE CONDITION.
--- NOTE | 2020-03-05 07:31 | NUR ---
RECEIVED REPORT FROM REMITTANCE CLERK NURSE. PATIENT IN STABLE CONDITION.
[2020-03-05 08:00] VITALS: BP 154/57
[2020-03-05] MEDS: MUPIROCIN CA NASAL 2% 1GM TUBE NS SCH (08:58)
[2020-03-05] MEDS: CHLORHEXADINE GLUC 2% CLOTH TP SCH (08:59)
--- NOTE | 2020-03-05 08:59 | NUR ---
SCHEDULED MEDICATIONS DUE GIVEN. WILL CONTINUE TO MONITOR. Addendum: 03/05/20 at 0902 by John Carlin RN PATIENT CONTINUES TO REFUSE ORAL MEDICATIONS AND TO EAT. WANTS TO GO HOME.
[2020-03-05] MEDS: ATORVASTATIN 20 MG TAB PO SCH (09:00)
[2020-03-05] MEDS: ASCORBIC ACID 500 MG TAB PO SCH (09:00)
[2020-03-05] MEDS: ZINC SULF 220 MG CAP PO SCH ×2 (09:00→21:00)
[2020-03-05] MEDS: VITAMIN D 400 IU TAB PO SCH (09:00)
[2020-03-05] MEDS: ENOXAPARIN 30 MG/0.3 ML SYR SUBQ SCH (09:00)
[2020-03-05] MEDS: AZITHROMYCIN 250 MG in DEXTROSE 5% 250 ML IV SCH (09:44)
--- NOTE | 2020-03-05 09:44 | NUR ---
SCHEDULED IV MEDICATIONS DUE GIVEN. WILL CONTINUE TO MONITOR.
[2020-03-05 09:53] LABS: WHITE BLOOD COUNT (AUTO) 5.3 K/uL (4.8-10.8)
[2020-03-05 09:57] LABS: HEMATOCRIT 27.1 % (36-48); HEMOGLOBIN 8.9 g/dL (12.0-16.0); MEAN CORPUSCULAR HEMOGLOBIN 27 pg (27-31); MEAN CORPUSCULAR HGB CONC 33 g/dL (33-37); MEAN CORPUSCULAR VOLUME 83.8 fL (80-94); RED BLOOD CELL COUNT(AUTO) 3.23 MIL/uL (4.20-5.40); RED CELL DISTRIBUTION WIDTH 16.1 % (11.6-13.7)
[2020-03-05 09:58] LABS: BASOPHILS % (AUTO) 0.2 % (0.0-2.0); EOSINOPHILS # (AUTO) 0.1 K/uL (0-0.4); LYMPHOCYTES # (AUTO) 1.1 K/uL (2.5-16.5); LYMPHOCYTES % (AUTO) 21.1 % (20.5-51.1); MONOCYTES # (AUTO) 0.4 K/uL (0.8-1.0); MONOCYTES % (AUTO) 7.3 % (1.7-9.3); NEUTROPHILS # (AUTO) 3.7 K/uL (1.8-7.7); NEUTROPHILS % (AUTO) 70.4 % (42.2-75.2); PLATELET COUNT (AUTO) 140 K/uL (140-450)
[2020-03-05 11:19] LABS: ANION GAP 13.3 (8-16); CARBON DIOXIDE 22.4 mmol/L (21-32); CHLORIDE 115 mmol/L (98-107); CREATININE 1.1 mg/dL (0.6-1.3); GLUCOSE 162 mg/dL (74-106); POTASSIUM 3.7 mmol/L (3.5-5.1); SODIUM SERUM 147 mmol/L (136-145); UREA NITROGEN, BLOOD 24 mg/dL (7-18)
[2020-03-05 11:20] LABS: ALBUMIN 2.1 g/dL (3.4-5.0); ASPARTATE AMINOTRANSFERASE 30 U/L (15-37); LACTATE DEHYDROGENASE 171 U/L (81-234); PHOSPHORUS 1.8 mg/dL (2.5-4.9); TOTAL BILIRUBIN 0.3 mg/dL (0.0-1.0)
--- NOTE | 2020-03-05 12:33 | NUR ---
BS CHECKED AT 55, ADMINISTERED D50. PATIENT CONTINUES TO REFUSE TO EAT. AND JUST WANTS TO GO HOME.
--- NOTE | 2020-03-05 17:00 | NUR ---
DC PLANN[age] YRS OLD FEMALE PATIENT WAS ADMITTED FROM HOME WITH A DX OF COVID 19 , HYPOGLYCEMIA HYPERNATREMIA. PT HAS NO MEDICAL HISTORY.CXR SHOWED PNA. RAPID COVID TEST NEGATIVE BUT PCR IS POSITIVE. STARTED WITH COVID PROTOCOL, IVF, IV ABX ROCEPHIN AND AZITHROMYCIN , CONTINUED HOME MEDS, ON ROOM AIR SATING 97% . SEEN BY PULMO, ID AND MODERN LANGUAGES PROFESSOR. DC PLAN TO GO HOME WHEN STABLE CM TO FOLLOW. Addendum: 03/07/20 at 1242 by Lisa Vu RN DC PLANNING: PER MD ORDER TO DISCHARGE TO SNF FOR PT. NOTIFIED FAMILY MEMBER .FAXED TO [facility], AND YESY CELIS CM TO FOLLOW Addendum: 03/07/20 at 1612 by Cristin Stein CM DC STRATEGIC SOURCING MANAGER: RECEIVED CALL FROM TAMMY AT [facility] THEY ARE ABLE TO ACCEPT THIS PATIENT. ROOM [address] UNDER DR. BRUNER. FAXED TRANSPORTATION REQUEST TO [facility]. Addendum: 03/07/20 at 1620 by Cristin Stein CM PERRY LANDIS: RECEIVED A CALL FROM [facility] [phone] TRANSPORTATION HAS BEEN SET UP WITH [employer] [phone] THEY DID NOT HAVE AN ETA YET. Addendum: 03/07/20 at 1704 by Cristin Stein CM PERRY LANDIS: NOTIFIED KEITH GARZA THAT TRANSPORTATION HAD BEEN SET UP. [facility]: [address] [place], [place] [id number] DR. BRUNER ROOM [address]
--- NOTE | 2020-03-05 19:30 | NUR ---
RECEIVED PT IN STABLE CONDITION FROM AM NURSE. AWAKE,ALERT ,ORIENTED X2-3. MED SURG PT. BEDREST CAN BE UP WITH ASSISTANCE. HAS IVF INFUSING WELL ON THE RT HAND G#22. CLEAR AND PATENT. ON DROPLET ISOLATION FOR CO0VID + AND CONTACT DUE TO MRSA NARES POSITIVE. PLAN OF CARE DISCUSSED AND BUT NEED REINFORCEMENT DUE TO DEMENTIA. FREQ ROUNDS NEEDED. BED ON LOWEST POSITION. SIDE RAILS UP X2. CALL LIGHT WITHIN EASY REACH. WILL CONTINUE TO MONITOR.
[2020-03-05] MEDS: DEXT 5% / NACL 0.45% 1,000 ML IV SCH (19:41)
[2020-03-05 20:00] VITALS: BP 126/69
--- NOTE | 2020-03-05 20:58 | NUR ---
BLOOD SUGAR WAS CHECKED RESULT 95. PT REFUSED TO TAKE ANYTHING PO . EVEN PO MEDS DUE REFUSED. PT IS HAVING NEW IVF D5 NS @100 ML /HR. WILL CONTINUE TO MONITOR.
[2020-03-06] MEDS: ONDANSETRON 4 MG/2 ML VIAL IM/IVP PRN (01:34)
--- NOTE | 2020-03-06 01:34 | NUR ---
GOT UP TO THE BATHROOM. IV DISCONNECTED BUT STILL IN PLACED. FLUSHED WITH NS ., STILL PATENT AND INTACT. PT VOMITED .MEDICATED WITH ZOFRAN IVP. WILL CONTINUE TO MONITOR.
--- NOTE | 2020-03-06 02:33 | NUR ---
MADE ROUNDS. PT ASLEEP. NO S/S OF ANY DISCOMFORT NOTED.
[2020-03-06 04:00] VITALS: BP 124/63
--- NOTE | 2020-03-06 06:00 | NUR ---
ASSISTED TO BATHROOM. UNSTEADY . VOIDED THEN BACK TO BED. NO SOB NOTED.
[2020-03-06] MEDS: DEXT 5% / NACL 0.45% 1,000 ML IV SCH ×2 (06:12→15:25)
[2020-03-06] MEDS: BLOOD GLUCOSE MONITORING 1 DEV DEV FS SCH ×4 (06:23→21:37)
--- NOTE | 2020-03-06 07:32 | NUR ---
RECEIVED BEDSIDE REPORT FROM DAY SHIFT NURSE. PATIENT IS ALERT AND ORIENTED X1. RESPIRATIONS ARE EVEN AND UNLABORED. NO S/S OF ACUTE RESPIRATORY DISTRESS NOTED. SKIN IS INTACT, WARM, AND DRY. IV SITE ON RFA 22G. INTACT AND PATENT. PLAN OF CARE WAS DISCUSSED. SAFETY PROTOCOLS IN PLACE. BED IN LOW POSITION AND CALL LIGHT WITHIN REACH. WILL CONTINUE TO MONITOR. Addendum: 03/07/20 at 0759 by Adam Pitts RN RN MANAGER OF SUSTAINABILITY NURSE
--- NOTE | 2020-03-06 07:35 | NUR ---
ENDORSED PT IN STABLE CONDITION TO AM NURSE.
[2020-03-06 08:00] VITALS: BP 136/75
[2020-03-06 08:48] LABS: BASOPHILS % (AUTO) 0.2 % (0.0-2.0); EOSINOPHILS # (AUTO) 0.1 K/uL (0-0.4); EOSINOPHILS % (AUTO) 1.4 % (0.0-4.0); HEMATOCRIT 26.9 % (36-48); HEMOGLOBIN 8.9 g/dL (12.0-16.0); LYMPHOCYTES # (AUTO) 1.1 K/uL (2.5-16.5); LYMPHOCYTES % (AUTO) 20.5 % (20.5-51.1); MEAN CORPUSCULAR HEMOGLOBIN 28 pg (27-31); MEAN CORPUSCULAR HGB CONC 33 g/dL (33-37); MEAN CORPUSCULAR VOLUME 83.3 fL (80-94); MONOCYTES # (AUTO) 0.5 K/uL (0.8-1.0); MONOCYTES % (AUTO) 9.3 % (1.7-9.3); NEUTROPHILS # (AUTO) 3.6 K/uL (1.8-7.7); NEUTROPHILS % (AUTO) 68.6 % (42.2-75.2); PLATELET COUNT (AUTO) 136 K/uL (140-450); RED BLOOD CELL COUNT(AUTO) 3.23 MIL/uL (4.20-5.40); RED CELL DISTRIBUTION WIDTH 15.9 % (11.6-13.7); WHITE BLOOD COUNT (AUTO) 5.2 K/uL (4.8-10.8)
[2020-03-06] MEDS: CHLORHEXADINE GLUC 2% CLOTH TP SCH (09:00)
[2020-03-06] MEDS: VITAMIN D 400 IU TAB PO SCH ×2 (09:00→10:38)
[2020-03-06] MEDS: ZINC SULF 220 MG CAP PO SCH ×3 (09:00→21:00)
[2020-03-06] MEDS: ASCORBIC ACID 500 MG TAB PO SCH ×2 (09:00→10:38)
[2020-03-06] MEDS: ATORVASTATIN 20 MG TAB PO SCH ×2 (09:00→10:38)
[2020-03-06] MEDS: MUPIROCIN CA NASAL 2% 1GM TUBE NS SCH ×2 (09:00→10:41)
[2020-03-06 09:31] LABS: ANION GAP 11.3 (8-16); ASPARTATE AMINOTRANSFERASE 31 U/L (15-37); CARBON DIOXIDE 25.1 mmol/L (21-32); CHLORIDE 110 mmol/L (98-107); CREATININE 0.9 mg/dL (0.6-1.3); GLUCOSE 102 mg/dL (74-106); MAGNESIUM 1.9 mg/dL (1.8-2.4); PHOSPHORUS 1.8 mg/dL (2.5-4.9); POTASSIUM 3.4 mmol/L (3.5-5.1); SODIUM SERUM 143 mmol/L (136-145); TOTAL BILIRUBIN 0.3 mg/dL (0.0-1.0); UREA NITROGEN, BLOOD 17 mg/dL (7-18)
[2020-03-06 10:42] LABS: LACTATE DEHYDROGENASE 193 U/L (81-234)
[2020-03-06] MEDS: ENOXAPARIN 30 MG/0.3 ML SYR SUBQ SCH (10:46)
--- NOTE | 2020-03-06 11:01 | NUR ---
PATIENT REFUSED SCHEDULED MEDS. EDUCATED PATIENT THE RISK AND BENEFITS. PATIENT VERBALIZED UNDERSTANDING AND STILL REFUSED. WILL NOTIFY MD.
[2020-03-06] MEDS: AZITHROMYCIN 250 MG in DEXTROSE 5% 250 ML IV SCH (11:20)
--- NOTE | 2020-03-06 11:24 | NUR ---
BLOOD GLUCOSE CHECK IS 96. NO INSULIN COVERAGE NEEDED.
--- NOTE | 2020-03-06 11:54 | NUR ---
03/06/20 RD FOLLOW UP COMPLETED PLEASE REFER TO NUTRITION ASSESSMENT UNDER CARE ACTIVITY FOR ESTIMATED NUTRITIONAL NEEDS. 1. RECOMMEND MECHANICAL SOFT CCHO 60GM DIET TOLERATED 2. RECOMMEND GLUCERNA TID 3. ENCOURAGE PO INTAKE 4. CONSIDER ENTERAL NUTRITION IF PO INTAKE CONTINUES <50% 5. RD TO FOLLOW-UP 2-3 DAYS, HIGH RISK EMILY IRELAND, RD
--- NOTE | 2020-03-06 13:00 | NUR ---
CHECKED ON PATIENT. PATIENT IS ASLEEP. RESPIRATIONS EVEN AND UNLABORED. NO S/S ACUTE RESPIRATORY DISTRESS NOTED. WILL CONTINUE TO MONITOR
[2020-03-06] MEDS ORDERED: ZINC220C28 PO (13:17)
[2020-03-06] MEDS ORDERED: VITC500 PO (13:17)
[2020-03-06 16:00] VITALS: BP 150/76
--- NOTE | 2020-03-06 17:22 | NUR ---
BLOOD GLUCOSE CHECK IS 91. NO INSULIN COVERAGE NEEDED.
[2020-03-06] MEDS ORDERED: POTASSIUM CHLORIDE 40 MEQ, LIDOCAINE MPF 1% 25 MG in NACL 0.9% 250 ML IV SCH (19:00)
--- NOTE | 2020-03-06 19:25 | NUR ---
ENDORSED PT TO TAILOR'S AIDE NURSE FOR CONTINUITY OF CARE.
--- NOTE | 2020-03-06 19:30 | NUR ---
RECEIVED PT IN STABLE CONDITION FROM AM NURSE. AWAKE,ALERT AND ORIENTED X3. MED SURG PT . ON DROPLET ISOLATION DUE TO COVID + . ON RA WITH NO SOB NOTED. HAS IVF POTASSIUM RIDER INFUSING WELL ON THE RT FA G#22. CLEAR AND PATENT. FREQ ROUNDS NEEDED. BED ON LOW POSITION. SIDE RAILS UP X2. CALL LIGHT WITHIN REACH. WILL CONTINUE TO MONITOR.
[2020-03-06 20:00] VITALS: BP 161/70
--- NOTE | 2020-03-06 20:48 | NUR ---
PT SEEN AND ASSESSED. FOUND PT ON ROOM AIR WITH SPO2 OF 97%. PT IS IN NO RESPIRATORY DISTRESS AT THIS TIME. WILL CONTINUE TO MONITOR PT.
--- NOTE | 2020-03-06 21:37 | NUR ---
BLOOD SUGAR WAS CHECKED RESULT 91. PT REFUSED TO TAKE ANY FOOD AT THIS TIME. STILL WITH CONTINUOUS IVF
--- NOTE | 2020-03-06 23:00 | NUR ---
MADE ROUNDS PT IS ASLEEP. NO SOB NOTED.
[2020-03-07] MEDS: DEXT 5% / NACL 0.45% 1,000 ML IV SCH ×2 (01:25→10:15)
--- NOTE | 2020-03-07 02:00 | NUR ---
MADE ROUNDS . PT IS SLEEPING WITH NO DISCOMFORT NOR SOB NOTED. WILL CONTINUE TO MONITOR.
[2020-03-07 04:00] VITALS: BP 156/91
[2020-03-07] MEDS: BLOOD GLUCOSE MONITORING 1 DEV DEV FS SCH ×3 (06:19→16:13)
--- NOTE | 2020-03-07 06:19 | NUR ---
BLOOD SUGAR WAS CHECKED THIS AM RESULT 83. STILL WITH IVF INFUSING WELL.
--- NOTE | 2020-03-07 06:48 | NUR ---
RUSS FROM [facility] JUST CALLED [phone]. TOLD HER ABOUT THE DISCHARGE ORDER FOR PT. ASKED WHO WILL ARRANGE THE TRANSPORTATION. SHE SAID THE SONS EITHER [facility] OR [facility]. SHE WILL CALL BACK LATER TO GIVE THE PHONE NUMBER OF THE SONS
--- NOTE | 2020-03-07 07:30 | NUR ---
RECEIVED BEDSIDE REPORT FROM PATHOLOGICAL TECHNICIAN NURSE. PATIENT IS ALERT AND ORIENTED X1. RESPIRATIONS ARE EVEN AND UNLABORED. ON ROOM AIR. NO S/S OF ACUTE RESPIRATORY DISTRESS NOTED. SKIN IS INTACT, WARM, AND DRY. IV SITE ON RFA 22G. INTACT AND PATENT. PLAN OF CARE WAS DISCUSSED. SAFETY PROTOCOLS IN PLACE. BED IN LOW POSITION AND CALL LIGHT WITHIN REACH. WILL CONTINUE TO MONITOR.
--- NOTE | 2020-03-07 07:35 | NUR ---
ENDORSED PT IN STABLE CONDITION TO AM NURSE.
[2020-03-07 08:00] VITALS: BP 131/71
[2020-03-07] MEDS: VITAMIN D 400 IU TAB PO SCH (09:00)
[2020-03-07] MEDS: ZINC SULF 220 MG CAP PO SCH (09:00)
[2020-03-07] MEDS: ATORVASTATIN 20 MG TAB PO SCH (09:00)
[2020-03-07] MEDS: CHLORHEXADINE GLUC 2% CLOTH TP SCH (09:00)
[2020-03-07] MEDS: ASCORBIC ACID 500 MG TAB PO SCH (09:00)
[2020-03-07] MEDS: ENOXAPARIN 30 MG/0.3 ML SYR SUBQ SCH (09:00)
[2020-03-07] MEDS: MUPIROCIN CA NASAL 2% 1GM TUBE NS SCH (09:00)
--- NOTE | 2020-03-07 10:16 | NUR ---
PATIENT REFUSED SCHEDULED MEDS. EDUCATED PATIENT THE RISK AND BENEFITS. PATIENT VERBALIZED UNDERSTANDING AND STILL REFUSED MEDS. WILL NOTIFY MD.
--- NOTE | 2020-03-07 11:30 | NUR ---
BLOOD GLUCOSE CHECK IS 74. NO INSULIN COVERAGE NEEDED. PATIENT IS STABLE. WILL CONTINUE TO MONITOR.
--- NOTE | 2020-03-07 11:45 | NUR ---
SPOKE TO DR. MEDINA AND INFORMED MD OF THE PT REFUSING TO TAKE THE ORAL MEDICATIONS AND IS REFUSING TO EAT WELL, DR. MEDINA MADE A TELEPHONE ORDER FOR SOCIAL SERVICE REQUEST FOR A SNF EVALUATION.
--- NOTE | 2020-03-07 12:15 | NUR ---
PT WAS ASSISTED TO EAT WITH HER LUNCH FOODS BUT PT REFUSED TO EAT AND VERBALIZED THAT SHE WANTS TO GO HOME.
--- NOTE | 2020-03-07 12:39 | NUR ---
[employer] TECHNICIAN: RECEIVED ORDER FOR SNF EVAL. SPOKE TO PATIENTS SON TONIE CHUNG [phone] HE IS AGREEABLE TO HIS MOTHER GOING TO SNF. HE STATED THAT HE IS WORKING ON GETTING HIS MOTHER INTO AN ASSISTED LIVING BUT IN THE MEAN TIME HE IS AGREEABLE TO HER GOING TO SNF FOR PT. ONCE I HAVE AN ACCEPTING SNF I WILL PROVIDED HIM WITH THE INFORMATION TO COORDINATE WITH SNF DISCHARGE PLANS. HE DOES NOT HAVE ANY PREFERENCES IN SNF. Addendum: 03/07/20 at 1245 by Cristin Stein CM [employer] TECHNICIAN: REACHED OUT TO [facility]. THEY ARE NOT ACCEPTING NEW PATIENTS AT THIS TIME. FAXED PATIENTS CLINICALS TO [facility] [phone] FAX# [phone] WILL FOLLOW UP WITH [facility] IN ADMISSIONS.
--- NOTE | 2020-03-07 14:30 | NUR ---
PT WAS ASSISTED TO THE BATHROOM AND WAS CLEANED, AND MADE COMFORTABLE ON THE BED.
[2020-03-07 16:00] VITALS: BP 133/72
--- NOTE | 2020-03-07 17:30 | NUR ---
PATIENT BEING TRANSFERRED TO [facility] TO ROOM [address]. ADDRESS IS [address] [place] [id number]. [phone] AT THE FACILITY IS DR BRUNER. GAVE REPORT OVER THE PHONE TO KEITH RODRIGUEZ. NURSE VERBALIZING UNDERSTANDING.
--- NOTE | 2020-03-07 18:40 | NUR ---
[facility]. PATIENT DISCHARGED TO [facility]
== END 2020-03-07 18:40 | DRG 177 ==
LOC: MED 18:23 → MTU 22:07 → MMU 03-02 22:05 → MTU 03-03 05:58
DX: U07.1 COVID-19 (principal); E11.00 Type 2 diabetes mellitus with hyperosmolarity without nonketotic hyperglycemic-hyperosmolar coma (NKHHC); J12.89 Other viral pneumonia; N17.0 Acute kidney failure with tubular necrosis; G93.41 Metabolic encephalopathy; E43 Unspecified severe protein-calorie malnutrition; E87.0 Hyperosmolality and hypernatremia; D64.9 Anemia, unspecified; E86.0 Dehydration; E87.6 Hypokalemia; F03.90 Unspecified dementia, unspecified severity, without behavioral disturbance, psychotic disturbance, mood disturbance, and anxiety; I70.201 Unspecified atherosclerosis of native arteries of extremities, right leg; E11.51 Type 2 diabetes mellitus with diabetic peripheral angiopathy without gangrene; N28.1 Cyst of kidney, acquired; R26.81 Unsteadiness on feet; N18.9 Chronic kidney disease, unspecified; E11.22 Type 2 diabetes mellitus with diabetic chronic kidney disease; Z22.322 Carrier or suspected carrier of Methicillin resistant Staphylococcus aureus; Z90.49 Acquired absence of other specified parts of digestive tract; Z88.0 Allergy status to penicillin; Z68.24 Body mass index [BMI] 24.0-24.9, adult
CPT/HCPCS: 36415; 71045; 76770; 80048; 80053; 80305; 81003; 82150; 82550; 82728; 82948; 83036; 83605; 83615; 83690; 83735; 83880; 84100; 84134; 84300; 84436; 84443; 84484; 85025; 85379; 85384; 85610; 85651; 85730; 86140; 87040; 87081; 87086; 87420; 87804; 93005; 93925; 93970; 99291; J0456; J0696; J1650; J2001; J2060; J2405; J3475; J3480; J3490; J3535; J7030; J7060; U0003